=== PATIENT | female | born 1990 | race Caucasian/White ===

== ENCOUNTER 2016-04-07 09:10 | Emergency (ER) | payer BC, OTHER ==
[2016-04-07] MEDS ORDERED: IOPAMIDOL-300 100 ML VIAL IVP ONE (10:28)
== END 2016-04-07 12:23 | disposition home or self-care (01) ==
DX: E04.1 Nontoxic single thyroid nodule (principal); N63 Unspecified lump in breast
CPT/HCPCS: 36415; 70491; 80048; 81025; 85025; 99283; 99284; Q9967

== ENCOUNTER 2016-04-26 08:29 | Outpatient (CLI) | payer BC | END 2016-04-26 08:30 | disposition home or self-care (01) | DX: N63 Unspecified lump in breast (principal) ==

== ENCOUNTER 2016-10-19 10:06 | Emergency (ER) | payer BC ==
--- NOTE | 2016-10-19 11:59 | ED Physician Documentation ---
History of Present Illness - Stated complaint Stated Complaint: L LEG PX - Chief complaint Chief Complaint: Ext Problem - Additonal information Additional information: hx from pt 26 female known thryroid cancer s.p lobectomy on levothyroxine may need radiation denies preg fhx DVT LLE pain to calf and popliteal region with walking s injury also feels SOA with exertion and having palp but that may be 2/2 increasing levothyroxine Review of Systems Constitutional: denies: Fever, Chills Cardiac: reports: Palpitations. 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 HEENT: Tonsil/Adenoidectomy - Present Medications Home Medications: Ambulatory Orders Medication Instructions Recorded Confirmed Levothyroxine [Synthroid] 10/19/16 Rivaroxaban [Xarelto] 15 mg PO BID #41 tablet 10/19/16 Rivaroxaban [Xarelto] 20 mg PO DAILY #63 tablet 10/19/16 - Allergies Allergies/Adverse Reactions: Allergies Allergy/AdvReac Type Severity Reaction Status Date / Time albuterol AdvReac Unknown Verified 10/19/16 11:26 - Social History Does the pt smoke?: No Smoking Status: Never smoker Does the pt drink ETOH?: No Does the pt have substance abuse?: No - Immunizations Immunizations are current?: Yes - POLST Patient has POLST: No PD ED PE NORMAL - Vitals Vital signs reviewed: Yes - HEENT HEENT: Atraumatic - Neck Neck: Supple, no meningeal sign - Cardiac Cardiac: RRR - Respiratory Respiratory: No respiratory distress, Clear bilaterally - Abdomen Abdomen: Soft, Non tender - Extremities Extremities: Other (mild calf TTP no cord, MSCV intact) - Neuro Neuro: Alert and oriented X 3, No motor deficit, No sensory deficit Results - Vitals Vitals: Vital Signs - 24 hr 10/19/16 10:20 Temperature 36.6 C Heart Rate 86 Respiratory 16 Rate Blood Pressure 128/86 H O2 Saturation 98 Oxygen O2 Source Room air - Labs Labs: Laboratory Tests 10/19/16 10/19/16 10/19/16 12:30 12:30 12:30 WBC 8.1 RBC 4.76 Hgb 13.4 Hct 40.1 MCV 84.2 MCH 28.1 MCHC 33.4 RDW 13.0 Plt Count 240 MPV 7.5 L Neut # 7.0 H Lymph # 0.8 L [place] # 0.2 Eos # 0.1 Baso # 0.0 Absolute Nucleated RBC 0.00 Nucleated RBCs 0.0 D-Dimer 232.1 Sodium 137 Potassium 4.2 Chloride 101 Carbon Dioxide 26 Anion Gap 10.0 BUN 15 Creatinine 0.9 Estimated GFR (MDRD) 75 L Glucose 113 H Calcium 9.6 Serum HCG, Qual NEGATIVE - Rads (name of study) doppler Radiology: See rad report (acute greater saphenous clot extendign to/near deep circulation) CTPA Radiology: See rad report (no PE, 2 small non calcified periph nodules RML, 2mm L renal calculus) Departure - Departure Disposition: 01 Home, Self Care Clinical Impression: DVT (deep venous thrombosis) Qualifiers: DVT location: lower extremity Affected thrombotic vein of extremity: other lower extremity vein Laterality: left Chronicity: acute Qualified Code(s): I82.492 - Acute embolism and thrombosis of other specified deep vein of left lower extremity Condition: Good Instructions: ED DVT, Rivaroxaban oral tablets Follow-Up: Yvette Schmidt ARNP [Primary Care Provider] - Prescriptions: Rivaroxaban [Xarelto] 15 mg PO BID #41 tablet Rivaroxaban [Xarelto] 20 mg PO DAILY #63 tablet Comments: Your have blood clot in your leg but thankfully not in your lungs. You need to be on the blood thinner for at least three months - at that time your PMD or oncologist will decide if you can stop You should take 15 mg twice a day for 3 weeks, then 20 mg once a day from then on The CT scan did show two very small nodules in your right lung - since you have thyroid cancer it is important that you tell your oncologist about these nodules and that repeat xrays are done to make sure they are not changing
[2016-10-19 12:40] LABS: BASOPHILS % (AUTO) 0.4 %; EOSINOPHILS # (AUTO) 0.1 10^3/uL (0.0-0.7); EOSINOPHILS % (AUTO) 1.2 %; HCT - HEMATOCRIT 40.1 % (37.0-47.0); HGB - HEMOGLOBIN 13.4 g/dL (12.0-16.0); LYMPHOCYTES # (AUTO) 0.8 10^3/uL (1.5-3.5); MEAN CORPUSCULAR HEMOGLOBIN 28.1 pg (27.0-31.0); MEAN CORPUSCULAR HGB CONC 33.4 g/dL (32.0-36.0); MEAN CORPUSCULAR VOLUME 84.2 fL (81.0-99.0); MEAN PLATELET VOLUME 7.5 fL (7.9-10.8); MONOCYTES # (AUTO) 0.2 10^3/uL (0.0-1.0); MONOCYTES % (AUTO) 2.7 %; NEUTROPHILS % (AUTO) 85.7 %; RED BLOOD COUNT 4.76 10^6/uL (4.20-5.40); UNCORRECTED WHITE BLOOD COUNT 8.1 x10^3/uL; WHITE BLOOD COUNT 8.1 x10^3/uL (4.8-10.8)
[2016-10-19 12:58] LABS: BUN - BLOOD UREA NITROGEN 15 mg/dL (6-20); CALCIUM 9.6 mg/dL (8.5-10.3); CARBON DIOXIDE - CO2 26 mmol/L (21-32); CHLORIDE 101 mmol/L (101-111); CREATININE 0.9 mg/dL (0.4-1.0); GFR - MDRD 75 (>89); GLUCOSE 113 mg/dL (70-100); POTASSIUM 4.2 mmol/L (3.5-5.0); SODIUM 137 mmol/L (135-145)
--- NOTE | 2016-10-19 13:44 | Ultrasound Report ---
LEFT LOWER EXTREMITY VENOUS ULTRASOUND: 10/19/2016 CLINICAL HISTORY: The patient is having left lower extremity pain. She has a family history of DVT. The patient has thyroid cancer. TECHNIQUE: The examination was done with color Doppler [employer] ultrasound scanning system. FINDINGS: The greater saphenous vein shows evidence of partial occlusion with an acute thrombus extending within 1 cm of its junction with the common femoral vein. The thrombus appears acute. It is hypoechoic and does expand the proximal greater saphenous vein near its junction with the common femoral vein. The findings represent a superficial vein thrombosis. If patient is not treated with anticoagulation therapy, she should be very carefully followed to be sure that the thrombus does not extend into the adjacent common femoral vein. The deep veins of the left lower extremity including the common femoral vein, superficial femoral vein, profunda femoral vein, popliteal vein, and calf veins show normal compressibility and phasic color flow. IMPRESSION: ACUTE VEIN THROMBOSIS IS NOTED INVOLVING THE LEFT GREATER SAPHENOUS VEIN. THROMBOSIS EXTENDS INTO THE PROXIMAL ASPECT OF THE GREATER SAPHENOUS VEIN WITHIN 1 CM OF ITS JUNCTION WITH THE COMMON FEMORAL VEIN. THIS IS AN ACUTE VEIN THROMBOSIS. IF PATIENT IS NOT TREATED WITH ANTICOAGULATION THERAPY, SHE SHOULD BE VERY CAREFULLY FOLLOWED WITH LEFT LOWER EXTREMITY VENOUS ULTRASOUNDS FOR REASONS DISCUSSED ABOVE. COMMENT: The patient's ER physician, Dr. Rich, was notified by Dr. Hall of the acute thrombosis in the left greater saphenous vein. Dr. Rich indicated that the patient is going to be treated with anticoagulation therapy for this thrombus. This notification was done on 10/19/2016 at 1:20 p.m. JOB #: [id number] [facility] JOB #: [id number] [facility]
[2016-10-19] MEDS ORDERED: RIVAROXABAN 15 MG TABLET PO STA (14:48)
--- NOTE | 2016-10-19 14:59 | CT Preliminary Report ---
Exam: CT Chest Angio (PE) IMPRESSION: 1. No evidence of pulmonary embolism. 2. No pulmonary consolidation or edema. 3. 2 small noncalcified 2 mm peripheral nodules in the right middle lobe and along the right major fi ssure. 4. Nonobstructing 2 mm left renal calculus. [facility] SITE ID: [id number]
--- NOTE | 2016-10-19 15:02 | CT Report ---
EXAM: CT ANGIOGRAM CHEST EXAM DATE: 10/19/2016 02:29 PM. CLINICAL HISTORY: Shortness of breath. Family history of cancer and DVT. COMPARISON: Abdominopelvic CT 05/26/2010. TECHNIQUE: Routine helical imaging was performed through the chest in the pulmonary arterial phase. I V Contrast: 100 cc Isovue-300. Reconstructions: Coronal 3-D MIP reconstructions.Sagittal and coronal. In accordance with CT protocol optimization, one or more of the following dose reduction techniques w ere utilized for this exam: automated exposure control, adjustment of mA and/or KV based on patient s ize, or use of iterative reconstructive technique. FINDINGS: Pulmonary Arteries: No evidence of pulmonary embolism. Normal caliber of the central pulmonary arteries. Lungs/Pleura: 2 mm peripheral noncalcified nodule in the right middle lobe on series 5 image 89. 2 mm noncalcified nodular density along the right major fissure on image 97. No pleural effusion. No pulm onary consolidation or edema. Mediastinum: Normal heart size. No pericardial effusion. Small amount of pericardial fluid superiorly . No pathologic lymphadenopathy. Thoracic Aorta: Normal caliber without aneurysm or dissection. Upper Abdomen: 2 mm nonobstructing left renal calculus. Not significantly changed from prior. Other: None. IMPRESSION: 1. No evidence of pulmonary embolism. 2. No pulmonary consolidation or edema. 3. 2 small noncalcified 2 mm peripheral nodules in the right middle lobe and along the right major fi ssure. 4. Nonobstructing 2 mm left renal calculus. [facility] Referring Provider Line: [phone] SITE ID: [id number]
[2016-10-19 15:19] VITALS: BP 121/80
== END 2016-10-19 15:24 | disposition home or self-care (01) ==
LOC: ED 10:06
DX: I82.492 Acute embolism and thrombosis of other specified deep vein of left lower extremity (principal); C73 Malignant neoplasm of thyroid gland
CPT/HCPCS: 36415; 71275; 80048; 84703; 85025; 85379; 93971; 99283; 99284; A9270

== ENCOUNTER 2016-12-06 18:50 | Outpatient (CLI) | payer BC ==
--- NOTE | 2016-12-07 09:08 | Ultrasound Report ---
EXAM: LEFT LOWER EXTREMITY VENOUS ULTRASOUND EXAM DATE: 12/06/2016 08:36 PM. CLINICAL HISTORY: F/U SAPHENOUS VEIN CLOT. COMPARISON: Ultrasound 10/19/2016. TECHNIQUE: Real-time sonographic vascular imaging was performed by the setter up through the lower extremity utilizing both color-flow and Doppler spectral analysis. Multiple cash posting representative static marine ges were saved for review. FINDINGS: Common Femoral Vein (CFV): Normal. CFV-GSV Junction: There is some residual wall thickening within superior aspect of greater saphenous vein, however this does not reach the junction with common femoral vein. Profunda Femoral Vein (PFV): Normal. Femoral Vein (FV) Prox: Normal. Femoral Vein (FV) Mid: Normal. Femoral Vein (FV) Dist: Normal. Popliteal Vein: Normal. Posterior Tibial Veins: Normal. Peroneal Veins: Normal. Contralateral Side CFV: Normal. Other: None. IMPRESSION: 1. No evidence for deep venous thrombosis. 2. 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 Superficial thro mbus does not reach the common femoralgreater saphenous junction. Significant interval improvement s alistair 10/19/2016, when patient had occlusive greater saphenous vein (superficial) thrombus. [facility] Referring Provider Line: [phone] SITE ID: [id number]
== END 2016-12-06 18:51 | disposition home or self-care (01) ==
LOC: DI 18:50
PROVIDERS: ATTEND Registered Nurse
DX: I82.592 Chronic embolism and thrombosis of other specified deep vein of left lower extremity (principal)

== ENCOUNTER 2017-01-07 15:02 | Outpatient (CLI) | payer BC ==
--- NOTE | 2017-01-07 16:44 | Ultrasound Report ---
EXAM: LEFT LOWER EXTREMITY VENOUS DOPPLER ULTRASOUND EXAM DATE: 01/07/2017 03:38 PM. CLINICAL HISTORY: 26-year-old female for follow-up of nonocclusive left greater saphenous vein clot. History of thyroidectomy and thyroid therapy. COMPARISON: Similar prior studies of 12/06/2016 and 10/19/2016. TECHNIQUE: Real-time sonographic vascular imaging was performed by the hydraulic and plumbing installer through the lower extremity utilizing both color-flow and Doppler spectral analysis. Multiple claims representative static marine ges were saved for review. FINDINGS: Common Femoral Vein (CFV): Normal. CFV-GSV Junction: Normal. Profunda Femoral Vein (PFV): Normal. Femoral Vein (FV) Prox: Normal. Femoral Vein (FV) Mid: Normal. Femoral Vein (FV) Dist: Normal. Popliteal Vein: Normal. Posterior Tibial Veins: Normal. Peroneal Veins: Normal. Contralateral Side CFV: Normal. Other: None. IMPRESSION: Normal examination. No evidence for deep venous thrombosis. Complete resolution of venous thrombosis in the left greater saphenous vein when compared with earlier studies. No new abnormality . [facility] Referring Provider Line: [phone] SITE ID: [id number]
== END 2017-01-07 15:03 | disposition home or self-care (01) ==
LOC: DI 15:02
PROVIDERS: ATTEND Registered Nurse
DX: I82.812 Embolism and thrombosis of superficial veins of left lower extremity (principal)

== ENCOUNTER 2017-01-24 09:16 | Emergency (ER) | payer BC ==
[2017-01-24 10:11] LABS: BILIRUBIN,URINE NEGATIVE (NEGATIVE)
[2017-01-24 10:12] LABS: HCG UR QUAL NEGATIVE; UA CHARGE (STRIP ONLY) YES; UR CULTURE IF IND NOT INDICATED
--- NOTE | 2017-01-24 12:59 | ED Physician Documentation ---
PD HPI ABD PAIN - Stated complaint Stated Complaint: PELVIC/BACK PX - Chief complaint Chief Complaint: Abd Pain - History obtained from History obtained from: Patient - History of Present Illness Timing - onset: Other (26-year-old woman with Pain that has preceded her last to normal menses by about a week and then went away by the time her menses started but since the last menses which started 2 weeks ago it has been persistent. It is not severe but it is somewhat bad, there is no associated nausea, bleeding, or significant discharge. 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 HEENT: Tonsil/Adenoidectomy - Present Medications Home Medications: Ambulatory Orders Medication Instructions Recorded Confirmed Levothyroxine [Synthroid] 75 mcg PO DAILY 10/19/16 01/24/17 Aspirin Chewable [[place] 81 mg PO DAILY 01/24/17 01/24/17 Aspirin] - Allergies Allergies/Adverse Reactions: Allergies Allergy/AdvReac Type Severity Reaction Status Date / Time albuterol AdvReac Unknown Verified 01/24/17 09:24 - Social History Does the pt smoke?: No Smoking Status: Never smoker Does the pt drink ETOH?: No Does the pt have substance abuse?: No - Immunizations Immunizations are current?: Yes - POLST Patient has POLST: No PD ED PE NORMAL - Vitals Vital signs reviewed: Yes - General General: Alert and oriented X 3, No acute distress - Abdomen Abdomen: Normal bowel sounds, Soft, Other (Mild left lower quadrant tenderness without surgical signs) - Back Back: No CVA TTP, No spinal TTP - Neuro Neuro: Alert and oriented X 3, Normal speech - Psych Psych: Normal mood, Normal affect Results - Vitals Vitals: Vital Signs - 24 hr 01/24/17 01/24/17 09:27 11:28 Temperature 37.4 C Heart Rate 124 H 100 Respiratory 16 18 Rate Blood Pressure 116/76 132/73 H O2 Saturation 100 100 Oxygen O2 Source Room air - Labs Labs: Laboratory Tests 01/24/17 09:43 Urine Color LT. YELLOW Urine Clarity CLEAR Urine pH 6.0 Ur Specific [place] <=1.005 Urine Protein NEGATIVE Urine Glucose (UA) NEGATIVE Urine Ketones 15 H Urine Occult Blood TRACE-INTA Urine Nitrite NEGATIVE Urine Bilirubin NEGATIVE Urine Urobilinogen 0.2 (NORMAL) Ur Leukocyte Esterase NEGATIVE Ur Microscopic Review NOT INDICATED Urine Culture Comments NOT INDICATED Urine HCG, Qual NEGATIVE - Rads (name of study) Pelvic ultrasound Radiology: EMP read contemporaneously (Small left ovarian cyst) PD MEDICAL DECISION MAKING - ED course ED course: 26-year-old woman with a small left ovarian cyst. She declines prescription pain medication. Departure - Departure Disposition: Home, Self Care Clinical Impression: Cyst of ovary Qualifiers: Laterality: left Qualified Code(s): N83.202 - Unspecified ovarian cyst, left side Condition: Good Record reviewed to determine appropriate education?: Yes Instructions: ED Cyst Ovarian Comments: Ibuprofen as needed for pain. Return if worse. Follow-up with your doctor, suggest a repeat ultrasound in 6 weeks or so. Your blood pressure was elevated today on check into the emergency department. This does not mean that you have hypertension, it is a common phenomenon to come to the emergency department and have elevated blood pressure. I recommend that you see your primary care physician within the week to have it rechecked when you are feeling better.
[2017-01-24 13:06] VITALS: BP 126/70
--- NOTE | 2017-01-24 13:06 | Ultrasound Report ---
PELVIC ULTRASOUND: 01/24/2017 COMPARISON STUDY: None. INDICATION: Left pelvic pain. TECHNIQUE: Sonographic evaluation of the pelvis was performed using transabdominal and endovaginal technique. FINDINGS: There is a tiny nabothian cyst. The uterus appears otherwise normal in size and contour without masses. The endometrial stripe measures 13 mm. Right ovary 4.1 x 2.4 x 1.6 cm. Volume 8 mL. Left ovary 4.2 x 3.5 x 2.8 cm. Volume 22 mL. Left ovarian simple cyst measures up to 2.9 cm. No free fluid. IMPRESSION: SIMPLE-APPEARING LEFT OVARIAN CYST WITHOUT COMPLICATING FEATURES. OTHERWISE, UNREMARKABLE PELVIC ULTRASOUND EVALUATION. JOB #: [id number] EXT JOB #: [id number]
== END 2017-01-24 13:06 | disposition home or self-care (01) ==
LOC: ED 09:16
DX: N83.292 Other ovarian cyst, left side (principal); R03.0 Elevated blood-pressure reading, without diagnosis of hypertension; Z85.850 Personal history of malignant neoplasm of thyroid; Z79.82 Long term (current) use of aspirin
CPT/HCPCS: 76830; 76856; 81001; 81003; 81025; 87086; 93976; 99283

== ENCOUNTER 2017-02-27 07:27 | Outpatient (CLI) | payer BC ==
--- NOTE | 2017-02-27 11:33 | Ultrasound Report ---
RIGHT UPPER QUADRANT ULTRASOUND: 02/27/2017 CLINICAL INDICATION: Right upper quadrant pain. TECHNIQUE: Real-time scanning was performed with dermatology sales representative static images obtained. FINDINGS: The liver measures 17.3 cm. There is a hyperechoic nodule in the superior portion of the r ight lobe, measuring 1.2 x 0.9 x 0.9 cm, compatible with a hemangioma. No intrahepatic biliary dilata tion is seen. The common bile duct measures 5 mm. The gallbladder demonstrates multiple mobile calcul i. No wall thickening or pericholecystic fluid is present. The right kidney measures 10.6 cm, and dem onstrates no hydronephrosis. No free fluid is seen. IMPRESSION: CHOLELITHIASIS, WITHOUT EVIDENCE OF BILIARY OBSTRUCTION OR ACUTE CHOLECYSTITIS. LIKELY H EMANGIOMA IN THE RIGHT LOBE OF THE LIVER. JOB #: [id number] EXT JOB #:[id number]
== END 2017-02-27 07:28 | disposition home or self-care (01) ==
LOC: DI 07:27
PROVIDERS: ATTEND Naprapath
DX: K80.20 Calculus of gallbladder without cholecystitis without obstruction (principal)
CPT/HCPCS: 76705

== ENCOUNTER 2017-03-30 18:53 | Outpatient (CLI) | payer BC ==
--- NOTE | 2017-04-04 09:57 | Ultrasound Report ---
DATE OF SERVICE: 03/30/2017 THYROID ULTRASOUND: 03/30/2017 CLINICAL INDICATION: Hypothyroidism, dysphagia. TECHNIQUE: Real-time scanning was performed with sales representative meats static images obtained. FINDINGS: The patient is status post right hemithyroidectomy. There is no evidence of recurrent or residual mass in the right thyroidectomy bed. The left lobe measures 4.5 x 1.4 x 1.4 cm, and demonstrates nor mal echotexture. No adenopathy is seen. No sonographic abnormality is appreciated in the region of pain in the right submandibular region identified by the patient. IMPRESSION: Changes of right hemithyroidectomy. Normal appearance of the left lobe of the thyroid. No cervical adenopathy. TD: 03/31/2017 19:14
== END 2017-03-30 18:54 | disposition home or self-care (01) ==
LOC: DI 18:53
PROVIDERS: ATTEND Naturopath
DX: E89.0 Postprocedural hypothyroidism (principal); R13.10 Dysphagia, unspecified
CPT/HCPCS: 76536

== ENCOUNTER 2017-05-18 09:13 | Outpatient (CLI) | payer OTHER ==
--- NOTE | 2017-05-18 15:35 | Ultrasound Report ---
TRANSABDOMINAL PELVIC ULTRASOUND: 05/18/2017 CLINICAL INDICATION: Left ovarian cyst. COMPARISON: CT 05/26/2010. TECHNIQUE: Transabdominal pelvic ultrasound performed for global evaluation. Real-time scanning performed and static images obtained. FINDINGS: The uterus is anteverted, measuring 11.9 x 6.6 x 3.4 cm. The endometrial echo complex measures 9 mm. No focal myometrial lesion is present. The ovaries are normal, with the right measuring 4.2 x 2.0 x 1.8 cm, and the left, measuring 4.3 x 2.4 x 2.1 cm. No free fluid is present. IMPRESSION: NORMAL TRANSABDOMINAL PELVIC ULTRASOUND. NO EVIDENCE OF LEFT OVARIAN CYST. TD: 05/18/2017 15:35
== END 2017-05-18 09:14 | disposition home or self-care (01) ==
LOC: DI 09:13
PROVIDERS: ATTEND Naturopath
DX: N83.202 Unspecified ovarian cyst, left side (principal)
CPT/HCPCS: 76856

== ENCOUNTER 2017-07-07 08:00 | Outpatient (CLI) | payer OTHER | END 2017-07-07 08:01 | disposition home or self-care (01) | LOC: LAB.F 08:00 | PROVIDERS: ATTEND Registered Nurse | DX: I82.812 Embolism and thrombosis of superficial veins of left lower extremity (principal) | CPT/HCPCS: 36415; 85379 ==

== ENCOUNTER 2017-07-11 13:41 | Outpatient (CLI) | payer OTHER ==
--- NOTE | 2017-07-11 14:56 | Ultrasound Report ---
LEFT LEG VENOUS DUPLEX: 07/11/2017 CLINICAL INDICATION: Left leg pain, history of blood clot. Recent surgery. TECHNIQUE: Real-time sonographic vascular imaging was performed by the it software engineer through the left leg utilizing both color flow and Doppler spectral analysis. Multiple petroleum products sales representative static images were saved for review. FINDINGS: A left lower extremity venous sonogram is performed revealing the common femoral, superficial femoral, profunda femoris, and popliteal veins to be adequately visualized without intraluminal defects. There is normal venous compression, augmentation, phasicity, and spontaneity of venous flow. In the calf, the visualized more cephalad portions of posterior tibial and peroneal veins are grossly compressible, without filling defects. IMPRESSION: NO EVIDENCE OF DEEP VENOUS THROMBOSIS. TD: 07/11/2017 14:54
== END 2017-07-11 13:42 | disposition home or self-care (01) ==
LOC: DI 13:41
PROVIDERS: ATTEND Registered Nurse
DX: M79.605 Pain in left leg (principal); D68.9 Coagulation defect, unspecified; I83.12 Varicose veins of left lower extremity with inflammation

== ENCOUNTER 2017-12-08 19:05 | Outpatient (CLI) | payer OTHER ==
--- NOTE | 2017-12-09 13:29 | Ultrasound Report ---
Reason: EVALUATE PELVIC PAIN, PELVIC AND PERINEAL PAIN Procedure Date: 12/08/2017 Accession Number: [id number] / [id number] Procedure: US - Pelvic w/Transvaginal CPT Code: FULL RESULT: EXAM: PELVIC ULTRASOUND EXAM DATE: 12/08/2017 07:49 PM. CLINICAL HISTORY: EVALUATE PELVIC PAIN, PELVIC AND PERINEAL PAIN. COMPARISON: 05/18/2017. TECHNIQUE: Realtime transabdominal pelvic scan performed to identify the uterus and adnexa and as an overview of other pelvic structures, followed by transvaginal scan to provide greater detail of the uterus and adnexa, with static image documentation. FINDINGS: Uterus: 8.4 x 5.7 x 4.5 cm, volume 112 cc. Anteverted position. Normal overall size and echotexture. Masses: None. Endometrium: 8.7 mm. No focal endometrial abnormalities. Cervix: Unremarkable. Right Ovary: 4 x 2.6 x 2.2 cm, volume 11.8 cc. Normal echotexture and blood flow. Left Ovary: 2.5 x 1.6 x 2.0 cm, volume 4.2 cc. Normal echotexture and blood flow. Free Fluid: None. Other: None. IMPRESSION: No acute sonographic abnormalities. [facility]
== END 2017-12-08 19:06 | disposition home or self-care (01) ==
LOC: DI 19:05
PROVIDERS: ATTEND Registered Nurse
DX: R10.2 Pelvic and perineal pain (principal)
CPT/HCPCS: 76830; 76856

== ENCOUNTER 2018-12-21 15:12 | Outpatient (CLI) | payer OTHER ==
--- NOTE | 2018-12-21 18:05 | Ultrasound Report ---
Reason: PAIN IN LEFT LOWER LIMB Procedure Date: 12/21/2018 Accession Number: [id number] / [id number] Procedure: US - Duplex Ext Veins Left CPT Code: FULL RESULT: EXAM: LEFT LOWER EXTREMITY VENOUS ULTRASOUND EXAM DATE: 12/21/2018 04:45 PM. CLINICAL HISTORY: PAIN IN LEFT LOWER LIMB. COMPARISON: DUPLEX EXT VEINS LEFT 07/11/2017 1:57 PM. TECHNIQUE: Real-time sonographic vascular imaging was performed by the clinical educator through the lower extremity utilizing both color-flow and Doppler spectral analysis. Multiple direct marketing representative static images were saved for review. FINDINGS: Common Femoral Vein (CFV): Normal. CFV-GSV Junction: Normal. Profunda Femoral Vein (PFV): Normal. Femoral Vein (FV) Prox: Normal. Femoral Vein (FV) Mid: Normal. Femoral Vein (FV) Dist: Normal. Popliteal Vein: Normal. Posterior Tibial Veins: Normal. Peroneal Veins: Normal. Contralateral Side CFV: Normal. Other: None. IMPRESSION: No evidence for deep venous thrombosis in the left lower extremity. [facility] The call report notification system was initiated by Dr. Nathalie Veras at 06:03 PM on 12/21/2018.
== END 2018-12-21 15:13 | disposition home or self-care (01) ==
LOC: DI 15:12
PROVIDERS: ATTEND Nurse Practitioner Family
DX: M79.605 Pain in left leg (principal); Z86.718 Personal history of other venous thrombosis and embolism

== ENCOUNTER 2019-05-11 07:18 | Outpatient (CLI) | payer OTHER ==
--- NOTE | 2019-05-11 10:03 | Ultrasound Report ---
Reason: HX OF MALIGNANT NEOPLASM OF THYROID Procedure Date: 05/11/2019 Accession Number: [id number] / [id number] Procedure: US - Head or Neck Soft Tissue CPT Code: Final Report FULL RESULT: EXAM: THYROID ULTRASOUND EXAM DATE: 05/11/2019 08:03 AM. 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 Follow-up exam. COMPARISON: HEAD OR NECK SOFT TISSUE 03/30/2017 7:12 PM. TECHNIQUE: Real time sonographic imaging of the thyroid was performed by the steel analyst. Multiple sales promotion representative static images were saved for review. FINDINGS: THYROID GLAND: Right Lobe: Surgically absent. Isoechoic soft tissue similar to thyroid parenchyma about the lower resection bed measures approximately 0.6 x 0.7 x 1.7 cm (0.4 cc) as seen on image 9, newly identified. Left Lobe: 5.2 x 1.4 x 1.4 cm, volume 5.3 cc. Normal background echotexture. Left Lobe Nodules: A predominantly cystic focus with peripheral nodularity measures 0.8 x 0.7 x 0.7 cm. Isthmus: 0.1 cm AP. Isthmic Nodules: None. LYMPH NODES: No adenopathy demonstrated in the central or lateral compartment. Visualized nodes measure up to 4 mm in short axis on the right and 3 mm on the left. OTHER: None. IMPRESSION: 1. Residual thyroid tissue versus recurrent mass about the right lower thyroid resection bed measuring 0.6 x 0.7 x 1.7 cm. Close attention on follow-up is suggested. 2. Newly identified predominantly cystic left thyroid nodule measuring 0.8 cm. This has benign characteristics but attention on follow-up suggested. 3. No adenopathy. Management recommendations are based on 2015 [place] [employer] Management Guidelines for Adult Patients with Thyroid Nodules and Differentiated Thyroid Cancer. [facility]
== END 2019-05-11 07:19 | disposition home or self-care (01) ==
LOC: DI 07:18
PROVIDERS: ATTEND Registered Nurse
DX: E04.1 Nontoxic single thyroid nodule (principal); Z85.850 Personal history of malignant neoplasm of thyroid; E89.0 Postprocedural hypothyroidism
CPT/HCPCS: 76536

== ENCOUNTER 2020-04-30 15:25 | Outpatient (CLI) | payer BC ==
--- NOTE | 2020-04-30 17:25 | Ultrasound Report ---
PROCEDURE: Pelvic w/Transvaginal INDICATIONS: LLQ PAIN TECHNIQUE: Real-time scanning was performed of the pelvic organs, with image documentation. Additional endovagi nal scanning was necessary due to incomplete visualization of the adnexal and endometrial structures by transabdominal scanning. COMPARISON: Pelvic ultrasound 12/09/2017, 05/18/2017 FINDINGS: No pathologic free abdominal or pelvic fluid. Uterus: Uterus is normal in size at 9.5 x 4.6 x 6.4 cm. It demonstrates a diffuse appearance of coar sened heterotopic echogenicity. The endometrium measures 7 mm in combined thickness. Ovaries: Right ovary measures 2.7 x 2.5 x 2.4 cm, volume 11.6 cc. Left ovary measures 3.2 x 1.8 x 2. 4 cm, volume 7.2 cc. IMPRESSION: 1. Mild diffuse appearance of uterine coarsening. However no fibroids are definitively identified. Ot herwise, unremarkable exam. Reviewed by: Laura Maurice MD on 04/30/2020 5:24 PM PST Approved by: Laura Maurice MD on 04/30/2020 5:24 PM PST Station ID: [id number]
== END 2020-04-30 15:26 | disposition home or self-care (01) ==
LOC: DI 15:25
PROVIDERS: ATTEND Physician Assistant
DX: R10.32 Left lower quadrant pain (principal)

== ENCOUNTER 2020-07-07 15:54 | Outpatient (CLI) | payer BC ==
--- NOTE | 2020-07-07 17:10 | Ultrasound Report ---
PROCEDURE: Abdomen Limited INDICATIONS: HERNIA OF ANTERIOR ABD WALL TECHNIQUE: Real-time focused scanning was performed of the abdomen, with image documentation. COMPARISON: Pelvic ultrasound 04/30/2020. No recent CT scan found. FINDINGS: The patient reports periumbilical pain during sneezing. There is a questionable small umbi lical hernia measuring only 9 x 10 x 10 mm, with the neck visualized leading to this structure measur ing 14 mm. However, movement during Valsalva maneuver is not seen. The appearance could be a normal v ariant of the umbilicus rather than a manifestation of definite herniation. CT scanning would provide better visualization. IMPRESSION: CT scanning follow-up is likely warranted for the reported periumbilical pain due to the absence of a clearly documented omental or bowel abnormality in this clinical setting. Reviewed by: Camacho Wolf MD on 07/07/2020 5:08 PM PDT Approved by: Camacho Wolf MD on 07/07/2020 5:08 PM PDT Station ID: [id number]
== END 2020-07-07 15:55 | disposition home or self-care (01) ==
LOC: DI 15:54
PROVIDERS: ATTEND Physician Assistant
DX: K43.9 Ventral hernia without obstruction or gangrene (principal)

== ENCOUNTER 2020-09-08 16:54 | Outpatient (CLI) | payer BC, OTHER | END 2020-09-08 16:55 | disposition home or self-care (01) | LOC: LAB.S 16:54 | PROVIDERS: ATTEND Nurse Practitioner Psychiatric/Mental Health | DX: B02.9 Zoster without complications (principal); L98.9 Disorder of the skin and subcutaneous tissue, unspecified | CPT/HCPCS: 36415; 81599; 86787 ==

== ENCOUNTER 2022-06-27 08:00 | Outpatient (CLI) | payer BC, OTHER | END 2022-06-27 23:59 | disposition home or self-care (01) | LOC: LAB.R 08:00 | PROVIDERS: ATTEND Physician Assistant | DX: J02.9 Acute pharyngitis, unspecified (principal) | CPT/HCPCS: 87070; 87077 ==